=== PATIENT | male | born 1955 | race Caucasian/White ===

== ENCOUNTER → 2017-12-18 11:10 | Outpatient (CLI) | payer BC, SELFPAY ==
[2017-12-18 12:19] LABS: PSA,Total- Diagnostic 0.02 ng/mL (0.0-4.0)
== END ==
PROVIDERS: Family Provider Family Medicine; PCP Family Medicine; Visit Provider Urology
DX: C61 Malignant neoplasm of prostate (principal)
CPT/HCPCS: 36415; 84153

== ENCOUNTER → 2018-03-26 10:48 | Outpatient (CLI) | payer MEDICARE, BC, SELFPAY ==
--- NOTE | 2018-03-26 10:48 | DT_ITS ---
This patient was seen during an EMR downtime March 25, 2018 - April 01, 2018. This patient may have a combination of paper and electronic documentation or all paper documentation. All documentation is viewable within the e-chart portion of [employer] for each patient visit.
[2018-04-01 19:00] LABS: PSA,Total- Diagnostic < 0.01 ng/mL (0.0-4.0)
== END ==
PROVIDERS: Family Provider Family Medicine; PCP Family Medicine; Visit Provider Urology
DX: C61 Malignant neoplasm of prostate (principal)
CPT/HCPCS: 36415; 84153

== ENCOUNTER → 2018-07-08 09:23 | Outpatient (CLI) | payer MEDICARE, BC, SELFPAY ==
[2018-07-08 10:39] LABS: PSA,Total- Diagnostic 0.08 ng/mL (0.0-4.0)
== END ==
PROVIDERS: Family Provider Family Medicine; PCP Family Medicine; Visit Provider Urology
DX: C61 Malignant neoplasm of prostate (principal)
CPT/HCPCS: 36415; 84153

== ENCOUNTER → 2018-10-07 13:14 | Outpatient (CLI) | payer MEDICARE, BC, SELFPAY ==
[2018-10-07 14:59] LABS: PSA,Total- Diagnostic 0.33 ng/mL (0.0-4.0)
--- OUTSIDE RECORDS SUMMARY | 2019-01-09 04:08 | XMS RPT_ITS ---
:1955 Author Organization OHIP Care Team Providers Name Role Phone Washington Gray Attending Unavailable Marina, Washington Jacobsen Referring Unavailable Simental, Saul Primary Care Unavailable Marina, Washington Jacobsen Attending Unavailable Marina, Washington Jacobsen Referring Unavailable Simental, Saul Primary Care Unavailable Marina, Washington Jacobsen Attending Unavailable Marina, Washington Jacobsen Referring Unavailable Simental, Saul Primary Care Unavailable Marina, Washington Jacobsen Attending Unavailable Marina, Washington Jacobsen Referring Unavailable Simental, Saul Primary Care Unavailable PROBLEMS PROBLEMS DATE TYPE CONDITION / CODE ATTENDING STATUS SOURCE 10/07/2018 Unknown R97.20 - Washington Gray Active [place] [facility] specific antigen Repository [PSA] / R97.20(ICD-10) 05/17/2018 Unknown C61 - Malignant Marina, Washington Active [place] neoplasm of [facility] prostate / Hospital C61(ICD-10) Repository PROCEDURES PROCEDURES No Procedure Records FoundRESULTS RESULTS PSA,TOTAL- DIAGNOSTIC Collected: 10/07/2018 Status: F Source: [place] 1:35 PM [facility] REPOSITORY TYPE CODE TESTS RESULT OUT OF RANGE REFERENCE UNITS LAB L501.9940 0.0-4.0 ng/mL PSA, Normal DIAGNOSTIC 0.33 Result Comment: This test was performed using the TPSA assay method for the [employer] system. Values obtained with different assay methods cannot be used interchangably. When changing PSA assays in the course of monitoring a patient, additional sequential testing should be carried out to confirm baseline values. Performed By: #### L501.9940 #### [facility] [address] [place], [address] PSA,TOTAL- DIAGNOSTIC Collected: 07/08/2018 Status: F Source: [place] 9:43 AM [facility] REPOSITORY TYPE CODE TESTS RESULT OUT OF RANGE REFERENCE UNITS LAB L501.9940 0.0-4.0 ng/mL PSA, Normal DIAGNOSTIC 0.08 Result Comment: This test was performed using the TPSA assay method for the [employer] chemistry system. Values obtained with different assay methods cannot be used interchangably. When changing PSA assays in the course of monitoring a patient, additional sequential testing should be carried out to confirm baseline values. Performed By: #### L501.9940 #### [facility] [address] [place], [address] DOWNTIME REPORT Observed: 04/11/2018 Status: F Source: [place] 12:25 PM [facility] REPOSITORY [facility] Medical Records Department [address] [place] [address] Downtime Report MR#: [id number] Acct: [id number] Name: LEXX BELTRAN Rep #: [id number] : 1955 63 From: Jean Simental PCP: Saul Simental MD Status: REG CLI This patient was seen during an EMR downtime March 25, 2018 - April 01, 2018. This patient may have a combination of paper and electronic documentation or all paper documentation. All documentation is viewable within the e-chart portion of [employer] for each patient visit. PSA,TOTAL- DIAGNOSTIC Collected: 03/26/2018 Status: F Source: [place] 12:00 AM [facility] REPOSITORY Order Comment: RESULT(S) PREVIOUSLY REPORTED ON MANUAL REQUISITION DURING DOWNTIME. TYPE CODE TESTS RESULT OUT OF RANGE REFERENCE UNITS LAB L501.9940 0.0-4.0 ng/mL PSA, Normal DIAGNOSTIC < 0.01 Result Comment: This test was performed using the TPSA assay method for the [employer] chemistry system. Values obtained with different assay methods cannot be used interchangably. When changing PSA assays in the course of monitoring a patient, additional sequential testing should be carried out to confirm baseline values. Performed By: #### L501.9940 #### [facility] [address] [place], [address] PSA,TOTAL- DIAGNOSTIC Collected: 12/18/2017 Status: F Source: [place] 11:13 AM [facility] REPOSITORY TYPE CODE TESTS RESULT OUT OF RANGE REFERENCE UNITS LAB L501.9940 0.0-4.0 ng/mL PSA, Normal DIAGNOSTIC 0.02 Result Comment: This test was performed using the TPSA assay method for the [employer] chemistry system. Values obtained with different assay methods cannot be used interchangably. When changing PSA assays in the course of monitoring a patient, additional sequential testing should be carried out to confirm baseline values. Performed By: #### L501.9940 #### [facility] [address] [place], [address] ALLERGIES ALLERGIES DATE TYPE / NAME / CODE REACTION SEVERITY SOURCE CODE 09/01/2014 Drug oxytetracycline Unknown Unknown [place] Allergy/41 HCl/[id number](RXNORM [facility] [id number] Repository 09/01/2014 Drug oxytetracycline/F0060 Unknown Unknown [place] Allergy/41 07056(RXNORM) [facility] [id number]([facility]) Repository 09/01/2014 Drug venom-honey Hives Unknown [place] Allergy/41 bee/[id number](RXNORM [facility] [id number]) Repository ENCOUNTERS ENCOUNTERS ADMIT/DISCHARGE ACCOUNT ADMITTING ENCOUNTER LOCATION SOURCE NUMBER CLASS 10/07/2018 [id number] Ambulatory [place] 1 [facility] ing:LAB Repository 07/08/2018 [id number] Ambulatory [place] 4 [facility] ing:LAB Repository 03/26/2018 [id number] Ambulatory [place] 6 [facility] ing:LAB Repository 12/18/2017 [id number] Ambulatory [place] 0 [facility] ing:LAB Repository PAYERS PAYERS ENCOUNTER GUARANTOR PAYER SUBSCRIBER SOURCE 10/07/2018 LEXX N Primary LEXX N [place] [id number] TR Insurance:MEDICARE JENSENDOB: [address], PART A [id number] [address]Rhw: Number: Repository [id number] () Date:2018-10-07 10/07/2018 Secondary LEXX N [place] Insurance:ANTHEMPolic JENSENDOB: Community y Number: [id number] Hospital [id number] Repository Date:7702-26-90ID [address] [place] [address] 364[address]FW: 10/07/2018 Tertiary NOT GIVENUNK [place] Insurance:SELF PAY [facility] Number: Effective Repository Date:2018-10-07 07/08/2018 LEXX N Primary LEXX N [place] [id number] TR Insurance:MEDICARE JENSENDOB: [address], PART A [facility] [id number] [address]Fhq: Number: Repository [id number] (HP) Date:2018-07-08 07/08/2018 Secondary LEXX N [place] Insurance:ANTHEMPolic JENSENDOB: Community y Number: [id number] Hospital [id number] Repository Date:9885-17-24FP [address] [place] [address]RJ: 07/08/2018 Tertiary NOT GIVENUNK [place] Insurance:SELF PAY [facility] Number: Effective Repository Date:2018-07-08 03/26/2018 Lexx N Primary Lexx N [place] [id number] Tr Insurance:MEDICARE JensenDOB: [address], PART A [facility] [id number] [address]Jml: Number: Repository [id number] (HP) Date:2018-03-26 03/26/2018 Secondary Lexx N [place] Insurance:ANTHEMPolic JensenDOB: Community y Number: [id number] Hospital [id number] Repository Date:2821-18-60DG [address] [place] [address] [place] [address]TT: 03/26/2018 Tertiary NOT GIVENUNK [place] Insurance:SELF PAY [facility] Number: Effective Repository Date:2018-03-26 12/18/2017 Lexx Francois Primary [place]x [place] [id number] Tr Insurance:ANTHEMPolic JensenDOB: [address] Number: [id number] [address]Iga: [id number] Repository Date:[id number] [address] () [place], [place] [address]EQ: 12/18/2017 Secondary NOT GIVENUNK [place] Insurance:SELF PAY [facility] Number: Effective Repository Date:2017-12-18
== END ==
PROVIDERS: Family Provider Family Medicine; PCP Family Medicine; Referring Provider Urology; Visit Provider Urology
DX: R97.20 Elevated prostate specific antigen [PSA] (principal)
CPT/HCPCS: 36415; 84153

== ENCOUNTER → 2019-01-06 10:52 | Outpatient (CLI) | payer MEDICARE, BC, SELFPAY ==
[2019-01-06 12:12] LABS: PSA,Total- Diagnostic 0.04 ng/mL (0.0-4.0)
== END ==
PROVIDERS: Family Provider Family Medicine; PCP Family Medicine; Referring Provider Urology; Visit Provider Urology
DX: C61 Malignant neoplasm of prostate (principal)
CPT/HCPCS: 36415; 84153

== ENCOUNTER → 2019-07-07 12:28 | Outpatient (CLI) | payer MEDICARE, BC, SELFPAY ==
[2019-07-07 13:34] LABS: PSA,Total- Diagnostic 0.14 ng/mL (0.0-4.0)
== END ==
PROVIDERS: Family Provider Family Medicine; PCP Family Medicine; Referring Provider Urology; Visit Provider Urology
DX: C61 Malignant neoplasm of prostate (principal)
CPT/HCPCS: 36415; 84153

== ENCOUNTER → 2020-01-06 10:49 | Outpatient (CLI) | payer MEDICARE, BC, SELFPAY ==
[2020-01-06 11:52] LABS: PSA,Total- Diagnostic 0.96 ng/mL (0.0-4.0)
== END ==
PROVIDERS: PCP Family Medicine; Referring Provider Urology; Visit Provider Urology
DX: C61 Malignant neoplasm of prostate (principal)
CPT/HCPCS: 36415; 84153

== ENCOUNTER → 2020-03-19 10:19 | Outpatient (CLI) | payer MEDICARE, BC, SELFPAY ==
[2020-03-19 11:14] LABS: PSA,Total - Annual Screen 1.87 ng/mL (0.00-4.00)
== END ==
PROVIDERS: PCP Family Medicine; Referring Provider Urology; Visit Provider Urology
DX: C61 Malignant neoplasm of prostate (principal); Z12.5 Encounter for screening for malignant neoplasm of prostate
CPT/HCPCS: 36415; 84153; G0103

== ENCOUNTER → 2020-06-18 11:59 | Outpatient (CLI) | payer MEDICARE, BC, SELFPAY ==
[2020-06-18 13:16] LABS: PSA,Total- Diagnostic 2.77 ng/mL (0.0-4.0)
== END ==
PROVIDERS: PCP Family Medicine; Referring Provider Urology; Visit Provider Urology
DX: C61 Malignant neoplasm of prostate (principal)
CPT/HCPCS: 36415; 84153

== ENCOUNTER → 2020-09-22 10:39 | Outpatient (CLI) | payer MEDICARE, BC, SELFPAY ==
[2020-09-22 11:33] LABS: PSA,Total- Diagnostic 0.37 ng/mL (0.0-4.0)
== END ==
PROVIDERS: PCP Family Medicine; Visit Provider Urology
DX: C61 Malignant neoplasm of prostate (principal)
CPT/HCPCS: 36415; 84153

== ENCOUNTER → 2020-12-30 10:57 | Outpatient (CLI) | payer MEDICARE, BC, SELFPAY ==
[2020-12-30 12:46] LABS: PSA,Total- Diagnostic 0.41 ng/mL (0.0-4.0)
== END ==
PROVIDERS: PCP Family Medicine; Referring Provider Urology; Visit Provider Urology
DX: C61 Malignant neoplasm of prostate (principal)
CPT/HCPCS: 36415; 84153; 84403

== ENCOUNTER → 2021-04-07 11:05 | Outpatient (CLI) | payer MEDICARE, BC, SELFPAY ==
[2021-04-07 12:11] LABS: Anion Gap 6 (5-15); BUN 11 mg/dL (7-18); BUN/Creat Ratio 11.6 RATIO (10-20); Calcium,Total 9.3 mg/dL (8.5-10.1); Chloride 102 mmol/L (98-107); Creatinine, Serum 0.94 mg/dL (0.70-1.30); EST Glomerular Filtration Rate 84 mL/min (>60); Est Glom Filt Rate - Afr Amer 102 mL/min (>60); Glucose 99 mg/dL (74-106); PSA,Total- Diagnostic 2.49 ng/mL (0.0-4.0); Potassium 4.4 mmol/L (3.5-5.1); Sodium Level 139 mmol/L (136-145)
== END ==
PROVIDERS: PCP Family Medicine; Visit Provider Urology
DX: C61 Malignant neoplasm of prostate (principal)
CPT/HCPCS: 36415; 80048; 84153; 84403

== ENCOUNTER → 2021-07-12 11:29 | Outpatient (CLI) | payer MEDICARE, BC, SELFPAY ==
[2021-07-12 13:13] LABS: PSA,Total- Diagnostic 4.84 ng/mL (0.0-4.0)
== END ==
PROVIDERS: PCP Family Medicine; Referring Provider Urology; Visit Provider Urology
DX: C61 Malignant neoplasm of prostate (principal)
CPT/HCPCS: 36415; 84153; 84403

== ENCOUNTER 2021-10-24 11:10 | Outpatient (CLI) | payer MEDICARE, BC, SELFPAY ==
[2021-10-24 12:00] LABS: PSA,Total- Diagnostic 2.95 ng/mL (0.0-4.0)
== END 2021-10-24 23:59 | disposition short-term general hospital (02) ==
LOC: LAB 11:13
PROVIDERS: PCP Family Medicine; Visit Provider Urology
DX: C61 Malignant neoplasm of prostate (principal)
CPT/HCPCS: 36415; 84153

== ENCOUNTER 2022-01-20 11:37 | Outpatient (CLI) | payer MEDICARE, BC, SELFPAY ==
[2022-01-20 13:13] LABS: PSA,Total- Diagnostic 0.98 ng/mL (0.0-4.0)
== END 2022-01-20 23:59 | disposition home or self-care (01) ==
LOC: LAB 11:39
PROVIDERS: PCP Family Medicine; Referring Provider Registered Nurse; Visit Provider Registered Nurse
DX: C61 Malignant neoplasm of prostate (principal)
CPT/HCPCS: 36415; 84153

== ENCOUNTER → 2022-05-23 | Outpatient (CLI) | payer MEDICARE, BC, SELFPAY | END | disposition home or self-care (01) | PROVIDERS: Referring Provider Urology; Visit Provider Urology | DX: C61 Malignant neoplasm of prostate (principal) | CPT/HCPCS: 36415; 84153 ==

== ENCOUNTER → 2022-09-26 | Outpatient (CLI) | payer MEDICARE, BC, SELFPAY | END | disposition home or self-care (01) | LOC: LAB 10:18 | PROVIDERS: PCP Family Medicine; Visit Provider Registered Nurse | DX: C61 Malignant neoplasm of prostate (principal) | CPT/HCPCS: 36415; 84153 ==

== ENCOUNTER → 2023-01-01 | Outpatient (CLI) | payer MEDICARE, BC, SELFPAY ==
[2023-01-01 10:50] LABS: PSA,Total- Diagnostic 4.08 ng/mL (0.0-4.0)
== END | disposition home or self-care (01) ==
LOC: LAB 09:00
PROVIDERS: PCP Family Medicine; Referring Provider Registered Nurse; Visit Provider Registered Nurse
DX: C61 Malignant neoplasm of prostate (principal)
CPT/HCPCS: 36415; 84153

== ENCOUNTER → 2023-04-04 | Outpatient (CLI) | payer MEDICARE, BC, SELFPAY ==
[2023-04-04 12:17] LABS: PSA,Total- Diagnostic 2.71 ng/mL (0.0-4.0)
== END | disposition home or self-care (01) ==
LOC: LABSPEC 11:14
PROVIDERS: PCP Family Medicine; Referring Provider Registered Nurse; Visit Provider Registered Nurse
DX: C61 Malignant neoplasm of prostate (principal)
CPT/HCPCS: 36415; 84153

== ENCOUNTER → 2023-05-01 | Outpatient (CLI) | payer MEDICARE, BC, SELFPAY ==
--- NOTE | 2023-05-01 10:30 | PET_ITS ---
EXAMINATION: 18 F Pylarify PET-CT HISTORY: A 68-year-old male with history of primary prostate carcinoma presenting for restaging examination. COMPARISON EXAMINATION: None available INDEX LESION SIZE PROMISE SCORE SUV INTERPRETATION Abdominal retroperitoneum and pelvis soft tissue adenopathy 9.3-mm (largest) 3 27.35 (max) Fulfills quantitative criteria for malignant transformation TECHNIQUE: Following the intravenous administration of 9.99 mCi of 18 F Pylarify via the left hand, image acquisitions of the head, neck, chest, abdomen and pelvis to the level of the mid thigh at 73 minutes post-tracer distribution reveal: The examination was interpreted using the EANM (Rita et al., Journal of Nuclear Medicine Molecular Imaging 44:1622, 2017) and PROMISE (Hina et al., Journal of Nuclear Medicine 59:469, 2018) interpretive criteria. HEIGHT: 72 inches. WEIGHT: 180 lbs. PSMA expression score PROMISE criteria: High (3): SUV ? parotid-salivary gland, intermediate (2): SUV ? liver, low (1): > blood pool, < liver, (0): < blood pool. SUV reference values: Parotid glands 18.64. Normal liver parenchyma 4.1. Blood pool 2.1 FINDINGS: Head/Neck: Symmetric radiopharmaceutical concentration is defined in the bilateral parotid and submandibular glands. There is physiologic uptake within the nasal cavity. There is no evidence of abnormal increased tracer concentration within the cranial vault. CHEST: There is no evidence of abnormal increased radiotracer within the context of the bilateral hemithorax pulmonary parenchyma, mediastinal structures and right-left thoracic perihilum. Pertinent chest CT findings are as follows. There is atherosclerotic calcification defined in the thoracic aorta without evidence of dilatation-aneurysm formation. Coronary arterial calcification is observed. Bilateral axillary soft tissue densities are non-tracer avid. Mediastinal soft tissue reveals no evidence of increased radiopharmaceutical. Emphysematous changes are defined in the bilateral upper lung zones. There are no parenchymal densities-nodules defined in the right and left hemithorax pulmonary parenchyma displaying increased tracer uptake. Abdomen/Pelvis: Facilitated radiopharmaceutical concentration is multifocally apparent in the abdominal retroperitoneum and pelvis corresponding to soft tissue adenopathy. The calculated maximal standard uptake value is 27.35. The PROMISE score is 3. The largest corresponding soft tissue density is 9.3-mm. Physiologic radiopharmaceutical concentration is otherwise noted in the hepatic and splenic parenchyma, visualized intestinal tract, right and left kidneys, urinary bladder. Review of CT of the abdomen and pelvis reveals the following. Abdominal aorta. Abdominal-pelvic arterial calcification is observed. Fat containing right inguinal hernia is noted. Right and left inguinal soft tissue densities are ametabolic. SKELETAL: Degenerative changes are noted in the cervical, thoracic and lumbar spine without evidence of increased radiopharmaceutical concentration. PET/PET/CT Tumor WB Subs IMPRESSION: 1. ABNORMAL EXAMINATION INDICATIVE OF MALIGNANT VIABLE NEOPLASM. 2. Increased radiopharmaceutical concentration manifest in the abdominal retroperitoneum and pelvis fulfills quantitative criteria for viable neoplasm. (Eiber et al., Journal of Nuclear Medicine 59:469, 2018). Electronic Signature Arnulfo Roman, DO Accurate Quantification of SUVs and standardized PROMISE scores for this report are calculated using the exclusive [employer], (U.S. Patent No. [phone] [place] patent [phone] ). Standardization and correction of the FDG SUV metric exclusively available with [employer] intellectual property, allow for vendor non-specific objective quantitative sequential FDG PET-CT comparison and otherwise unobtainable optimization of the sensitivity and specificity of the examination. Electronically Signed: Arnulfo Roman, at 21:35 EDT ,
== END | disposition home or self-care (01) ==
LOC: ONC 09:59
PROVIDERS: PCP Family Medicine; Referring Provider Urology; Visit Provider Urology
DX: C61 Malignant neoplasm of prostate (principal)
CPT/HCPCS: 78816; A9595

== ENCOUNTER → 2023-07-06 | Outpatient (CLI) | payer MEDICARE, BC, SELFPAY ==
[2023-07-06 10:55] LABS: Creatinine, Serum 0.72 mg/dL (0.70-1.30); EST Glomerular Filtration Rate 114 mL/min (>60); Est Glom Filt Rate - Afr Amer 138 mL/min (>60); PSA,Total- Diagnostic 1.02 ng/mL (0.0-4.0)
== END | disposition home or self-care (01) ==
LOC: LAB 09:47
PROVIDERS: Student in an Organized Health Care Education/Training Program; PCP Family Medicine; Referring Provider Urology; Visit Provider Urology
DX: C61 Malignant neoplasm of prostate (principal)
CPT/HCPCS: 36415; 82565; 84153

== ENCOUNTER → 2023-10-10 | Outpatient (CLI) | payer MEDICARE, BC, SELFPAY | END | disposition home or self-care (01) | PROVIDERS: PCP Family Medicine; Referring Provider Urology; Visit Provider Urology | DX: C61 Malignant neoplasm of prostate (principal) | CPT/HCPCS: 36415; 84153 ==

== ENCOUNTER → 2024-01-10 | Outpatient (CLI) | payer MEDICARE, BC, SELFPAY ==
[2024-01-10 11:46] LABS: PSA,Total- Diagnostic 0.26 ng/mL (0.0-4.0)
== END | disposition home or self-care (01) ==
LOC: LAB 10:18
PROVIDERS: PCP Family Medicine; Referring Provider Urology; Visit Provider Urology
DX: R97.21 Rising PSA following treatment for malignant neoplasm of prostate (principal)
CPT/HCPCS: 36415; 84153

== ENCOUNTER → 2024-02-28 | Outpatient (CLI) | payer MEDICARE, BC, SELFPAY ==
--- NOTE | 2024-02-28 15:05 | RAD_ITS ---
STUDY: X-RAY - LUMBAR SPINE REASON FOR EXAM: Male, 68 years old. Back pain. TECHNIQUE: 2 view(s) of the lumbar spine were obtained. COMPARISON: None FINDINGS: Osteopenia. Normal lumbar lordosis. Mild dextroscoliosis. 1 cm of anterolisthesis of L5 on S1. Endplate concavities compatible with osteoporosis. Anterior wedge compression deformity of L1, age indeterminant. Diffuse intervertebral disc space narrowing with osteophyte formation most marked at L2-3 and to the greatest degree at L3-4. Marked vascular calcification. RAD/Lumbar Spine 2 or 3 Views IMPRESSION: Osteopenia with [id number] lumbosacral spondylosis as described. Electronically Signed: Sagar Whipple MD at 15:26 EDT ,
== END | disposition home or self-care (01) ==
LOC: MTRAD 15:04
PROVIDERS: PCP Family Medicine; Referring Provider Family Medicine; Visit Provider Family Medicine
DX: M47.819 Spondylosis without myelopathy or radiculopathy, site unspecified (principal)
CPT/HCPCS: 72100

== ENCOUNTER → 2024-03-06 | Outpatient (CLI) | payer MEDICARE, BC, SELFPAY ==
--- NOTE | 2024-03-06 07:56 | MRI_ITS ---
HISTORY: Compression fracture TECHNIQUE: Multiplanar and multisequence MR images of the lumbar spine were obtained without intravenous contrast. 161 images. COMPARISON: 02/28/2024. FINDINGS: VERTEBRAE: Compression fracture at the superior endplate of L1 with bone marrow edema, less than 30% loss of height, and no significant retropulsion into the spinal canal. Other vertebral body heights maintained. ALIGNMENT: 2 mm anterolisthesis of L5-S1. SPINAL CANAL: Normal morphology and position of the conus medullaris at L1. No gross epidural collection or ligamentous disruption. INTERVERTEBRAL DISCS: T12-L1, L1-2, L2-3, L3-4: No significant posterior disc protrusion, central canal stenosis, or foraminal narrowing. L4-5: Minimal disc bulge with mild facet arthropathy resulting in minimal narrowing of the thecal sac and bilateral foramina L5-S1: Minimal disc bulge with facet arthropathy resulting in minimal bilateral foraminal narrowing. No significant central canal stenosis. SOFT TISSUES: Mild posterior subcutaneous edema. Enlarged liver. MRI/Spine Lumbar (Routine) IMPRESSION: Acute-subacute mild L1 compression fracture. Mild degenerative changes of the lumbar spine without significant spinal canal or foraminal stenosis. Electronically Signed: Ramandeep Lora MD at 10:03 EDT ,
== END | disposition home or self-care (01) ==
LOC: MRI 07:42
PROVIDERS: PCP Family Medicine; Referring Provider Family Medicine; Visit Provider Family Medicine
DX: S32.000A Wedge compression fracture of unspecified lumbar vertebra, initial encounter for closed fracture (principal); X58.XXXA Exposure to other specified factors, initial encounter
CPT/HCPCS: 72148

== ENCOUNTER → 2024-03-14 | Outpatient (CLI) | payer MEDICARE, BC, SELFPAY ==
--- NOTE | 2024-03-13 09:00 | BONBX_PTH ---
PATIENT: HYACINTH BELTRAN LOC: [facility] U#:[id number] AGE/SX: 69/M ROOM: RE03/14/[address]: Dr. Jameson Ghotra MD : 1955 BED: DIS: 03/14/2024 SPEC #: [id number] RECD: 03/18/24 09:42 STATUS: JOSÉ RESkyla #: [id number] SCAR: 03/13/24 09:[address]: Jameson Ghotra DEPT: SURGICAL PATHOLOGY RECD BY: Malina Kimbrough ENTERED: 03/18/24 09:43 SP TYPE: Bone OTHR DR: Los Joy MD Tissues: Vertebra, NOS Procedures: Decalcification bone/plaque Surgery Specimen Level V HEADER OPERATION: Kyphoplasty at L1 PRE-OP DIAGNOSIS: Age-related osteoporosis with current pathological fracture, vertebra, initial encounter for fracture TISSUE SUBMITTED: Body of L1 biopsy MICROSCOPIC DIAGNOSIS L1 vertebral body, bone core biopsy: Reparative and reactive change consistent with fracture site. No evidence of malignancy. / 03/19/2024 MICROSCOPIC DESCRIPTION Slides are reviewed. GROSS DESCRIPTION Received in fixative is one container labeled with the patient's name and designated Body of L1. The specimen consists of the cylindrical fragment of bone measuring 0.9cm in length and 0.2cm in diameter. The specimen is submitted in its entirety in one cassette after decalcification. / 03/18/2024 TC:5 CPT:[id number]
== END | disposition home or self-care (01) ==
LOC: LABSPEC 15:12
PROVIDERS: PCP Family Medicine; Referring Provider Anesthesiology Pain Medicine; Visit Provider Anesthesiology Pain Medicine
DX: M81.0 Age-related osteoporosis without current pathological fracture (principal)
CPT/HCPCS: 88307; 88311

== ENCOUNTER → 2024-04-23 | Outpatient (CLI) | payer MEDICARE, BC, SELFPAY | END | disposition home or self-care (01) | LOC: LAB 08:58 | PROVIDERS: PCP Family Medicine; Referring Provider Urology; Visit Provider Urology | DX: C61 Malignant neoplasm of prostate (principal) | CPT/HCPCS: 36415; 84153 ==

== ENCOUNTER → 2024-06-09 | Outpatient (CLI) | payer MEDICARE, BC, SELFPAY ==
--- NOTE | 2024-06-09 09:45 | RAD_ITS ---
STUDY: X-RAY - LUMBAR SPINE REASON FOR EXAM: Male, 69 years old. HX COMPRESSION FRACTURE AT L1 TECHNIQUE: 5 view(s) of the lumbar spine were obtained. COMPARISON: 02/28/2024 FINDINGS: Normal lumbar lordosis. There is no substantial scoliosis. There is a normal alignment of the vertebrae. Interval treatment of compression fracture of L1 with vertebroplasty. Bilateral pars defects. L5 vertebra consistent with L5 spondylolysis. No anterolisthesis of L5 on S1 to 6 spinal listhesis. Normal disc space heights. There is multilevel facet hypertrophy. The soft tissue structures are unremarkable. RAD/L/S Spine Min 4 Views IMPRESSION: Interval vertebroplasty of compression fracture of L1. L5 spondylolysis without spondylolisthesis of L5 on S1. Degenerative disc disease. MRI may be useful. Electronically Signed: Arnulfo Patterson MD at 8:46 EDT ,
--- NOTE | 2024-06-09 09:45 | RAD_ITS ---
STUDY: X-RAY - THORACIC SPINE REASON FOR EXAM: Male, 69 years old. HX COMPRESSION FRACTURE AT L1 TECHNIQUE: 3 view(s) of the thoracic spine were obtained. COMPARISON: None. FINDINGS: Normal kyphosis of the thoracic spine. There is no substantial scoliosis. Chronic moderate wedge compression fracture of L1 treated with vertebral plasty. Flowing syndesmophytes throughout the thoracic spine consistent with ankylosing spondylitis. Normal disc space heights. The soft tissue structures are unremarkable. RAD/Thoracic Spine 3 Views IMPRESSION: Chronic moderate wedge compression fracture of L1 treated with vertebroplasty. Suspect ankylosing spondylitis. Electronically Signed: Arnulfo Patterson MD at 8:44 EDT ,
== END | disposition home or self-care (01) ==
LOC: RAD 09:35
PROVIDERS: PCP Family Medicine; Referring Provider Clinical Nurse Specialist Adult Health; Visit Provider Clinical Nurse Specialist Adult Health
DX: M54.6 Pain in thoracic spine (principal); M48.01 Spinal stenosis, occipito-atlanto-axial region
CPT/HCPCS: 72072; 72110

== ENCOUNTER → 2024-06-10 | Outpatient (CLI) | payer MEDICARE, BC, SELFPAY ==
--- NOTE | 2024-06-10 17:30 | MRI_ITS ---
STUDY: MRI LUMBAR SPINE WITHOUT CONTRAST REASON FOR EXAM: Male, 69 years old. L3 FRACTURE, HX OF PREVIOUS L1FX, BACK PAIN, PLEASE COMPARE TO PREVIOUS LUMBAR XRAYS AND MRI TECHNIQUE: Standardized fat and water weighted pulse sequences were obtained in the sagittal and axial planes. COMPARISON: Lumbar radiograph May 26 12/11/2023. MR lumbar spine March 06, 2024. FINDINGS: Compression fracture L1 not demonstrates signal loss centrally consistent with methylmethacrylate. No retropulsion or significant bone marrow edema. T12-L1: Normal endplates. Normal disc height, hydration and morphology. Normal bilateral facet joints. Normal central canal and bilateral lateral recesses. Normal bilateral intervertebral neural foramina. Normal lumbar lordosis. There is no substantial scoliosis. Normal conus medullaris that terminates at the L1-2. L1-2: Normal endplates. Normal disc height, hydration and morphology. Normal bilateral facet joints. Normal central canal and bilateral lateral recesses. Normal bilateral intervertebral neural foramina. L2-3: Normal endplates. Normal disc height, hydration and morphology. Normal bilateral facet joints. Normal central canal and bilateral lateral recesses. Normal bilateral intervertebral neural foramina. L3-4: Normal endplates. Normal disc height, hydration and morphology. Normal bilateral facet joints. Normal central canal and bilateral lateral recesses. Normal bilateral intervertebral neural foramina. L4-5: Normal endplates. Normal disc height, hydration and morphology. Hypertrophic bilateral facet joints. Normal central canal and bilateral lateral recesses. Moderate narrowing bilateral intervertebral neural foramina. L5-S1: Normal endplates. Normal disc height, hydration and morphology. Normal bilateral facet joints. Normal central canal and bilateral lateral recesses. Normal bilateral intervertebral neural foramina. Normal visualized sacral ala. Normal visualized paraspinous soft tissue structures. MRI/Spine Lumbar (Routine) IMPRESSION: Interval vertebral plasty L1 compression fracture otherwise no acute disease Electronically Signed: Gonzales Bush MD at 20:07 EDT ,
== END | disposition home or self-care (01) ==
LOC: MRI 16:34
PROVIDERS: PCP Family Medicine; Referring Provider Anesthesiology Pain Medicine; Visit Provider Anesthesiology Pain Medicine
DX: M80.08XA Age-related osteoporosis with current pathological fracture, vertebra(e), initial encounter for fracture (principal)
CPT/HCPCS: 72148

== ENCOUNTER → 2024-06-24 | Outpatient (CLI) | payer MEDICARE, BC, SELFPAY ==
--- NOTE | 2024-06-24 | BON_PTH ---
PATIENT: HYACINTH BELTRAN LOC: [facility] U#:[id number] AGE/SX: 69/M ROOM: RE06/24/[address]: Dr. Jameson Ghotra MD : 1955 BED: DIS: 06/24/2024 SPEC #: [id number] RECD: 06/24/24 15:03 STATUS: JOSÉ PAINTING #: [id number] SCAR: 06/24/24 00:[address]: Jameson Ghotra DEPT: SURGICAL PATHOLOGY RECD BY: David Charlton ENTERED: 06/25/24 08:32 SP TYPE: Bone OTHR DR: Los Joy MD [facility] Tissues: Vertebra, NOS Procedures: Decalcification bone/plaque Surgery Specimen Level IV HEADER OPERATION: Kyphoplasty at L5 with biopsy under fluoroscopy PRE-OP DIAGNOSIS: Age-related osteoporosis with current pathologic fracture, vertebra, initial encounter for fracture TISSUE SUBMITTED: Lumbar biopsy- body of L5 MICROSCOPIC DIAGNOSIS L5 vertebral body, bone biopsy: Organizing fracture callus. No evidence of malignancy. ASHISH/ 06/26/2024 MICROSCOPIC DESCRIPTION Slides are reviewed. GROSS DESCRIPTION Received is one container labeled with the patient's name and not further designated. The specimen consists of a fragment of bone measuring 1.5cm in length and 0.3cm in diameter. The entire specimen is submitted in one cassette after decalcification. 06/25/2024 TC:5 CPT:[id number]
== END | disposition home or self-care (01) ==
LOC: LABSPEC 16:07
PROVIDERS: PCP Family Medicine; Referring Provider Anesthesiology Pain Medicine; Visit Provider Anesthesiology Pain Medicine
DX: M80.08XA Age-related osteoporosis with current pathological fracture, vertebra(e), initial encounter for fracture (principal)
CPT/HCPCS: 88305; 88311

== ENCOUNTER → 2024-07-24 | Outpatient (CLI) | payer MEDICARE, BC, SELFPAY ==
[2024-07-24 14:31] LABS: PSA,Total- Diagnostic 0.04 ng/mL (0.0-4.0)
--- NOTE | 2024-07-24 15:45 | RAD_ITS ---
INDICATION: SUSPECT NEW COMPRESION FRACTURE EXAMINATION/TECHNIQUE: X-RAY - XR Spine Lumbar Min 4 Views COMPARISON: Prior study dated: Lumbar spine x-rays 06/09/2024 FINDINGS: L5 mild compression fracture with vertebroplasty is new compared to the prior study. L1 compression fracture with vertebroplasty is unchanged. The other vertebral bodies are normal in height. No definite fracture demonstrated. No subluxation. Disc space narrowing and osteophytes at most levels. Facet arthropathy mainly at L4-5 and L5-S1. No paravertebral soft tissue mass identified. RAD/L/S Spine Min 4 Views IMPRESSION: L5 compression fracture with vertebroplasty is new compared to the prior study. Stable L1 compression fracture postvertebroplasty. No evidence of acute fracture. Electronically Signed: Natasha West MD at 8:12 EDT ,
== END | disposition home or self-care (01) ==
PROVIDERS: Urology; PCP Family Medicine; Referring Provider Clinical Nurse Specialist Adult Health; Visit Provider Clinical Nurse Specialist Adult Health
DX: M47.816 Spondylosis without myelopathy or radiculopathy, lumbar region (principal); C61 Malignant neoplasm of prostate; M47.817 Spondylosis without myelopathy or radiculopathy, lumbosacral region
CPT/HCPCS: 36415; 72110; 84153

== ENCOUNTER → 2024-08-04 | Outpatient (CLI) | payer MEDICARE, BC, SELFPAY ==
--- NOTE | 2024-08-04 | IMM_PTH ---
PATIENT: HYACINTH BELTRAN LOC: [facility] U#:[id number] AGE/SX: 69/M ROOM: RE08/04/[address]: Dr. Jameson Ghotra MD : 1955 BED: DIS: 08/04/2024 SPEC #: [id number] RECD: 08/06/24 10:15 STATUS: JOSÉ REQ #: [id number] SCAR: 08/04/24 00:[address]: Jameson Ghotra DEPT: IMMUNOHISTOCHEMISTRY RECD BY: Maximilian Alegria ENTERED: 08/06/24 10:15 SP TYPE: IMMUNO OTHR DR: Los Joy MD Tissues: Vertebra, NOS Procedures: CD138 (add) CK8 (add) KAPPA (add) LAMBDA (add) Pankeratin (initial) PHYSICIAN & INSTITUTION [place] [id number] SPECIMEN INFORMATION: Tissue Source: Body of L2 Clinical Info: Age-related osteoporosis with current pathological fracture, vertebra, initial encounter for fracture Specimen Number: [id number] CPT code: 04841,43299d4 METHODOLOGY: Deparaffinized sections of prefer/formalin-fixed tissue or PAP/DQ stained slides are incubated with monoclonal/polyclonal antibodies/oligonucleotide probes. Localization is made via biotin free immunoperoxidase method. Appropriate controls are performed and reacted as expected. Results on target cell population are indicated in the following table: RESULTS: ANTIBODY / CLONE RESULT AE1-3 (AE1/AE3/PCK26) negative CK8 ([id number]) negative CD138 (B-A38) positive Rutherford (polyclonal) positive Lambda (polyclonal) positive These tests were developed and their performance characteristics determined by [facility]. They may not have been cleared or approved by the U.S. Food and Drug Administration. The FDA has determined that such clearance or approval is not necessary. The above immunohistochemical/dualISH markers are ordered and reviewed by the Pathologist. INTERPRETATION: Body of L2 vertebra, bone biopsy: Negative for malignancy. See comment. COMMENT: A few plasma cells are noted, polytypic in nature. 08/07/2024
--- NOTE | 2024-08-04 | BON_PTH ---
PATIENT: HYACINTH BELTRAN LOC: [facility] U#:[id number] AGE/SX: 69/M ROOM: RE08/04/[address]: Dr. Jameson Ghotra MD : 1955 BED: DIS: 08/04/2024 SPEC #: [id number] RECD: 08/05/24 11:07 STATUS: JOSÉ MERT #: [id number] SCAR: 08/04/24 00:[address]: Jameson Ghotra DEPT: SURGICAL PATHOLOGY RECD BY: Eleazar Olivo ENTERED: 08/05/24 11:07 SP TYPE: Bone OTHR DR: [place] MD [facility] Tissues: Vertebra, NOS Procedures: Decalcification bone/plaque Surgery Specimen Level IV HEADER OPERATION: Kyphoplasty at L2 under fluroscopy PRE-OP DIAGNOSIS: Age-related osteoporosis with current pathological fracture, vertebra, initial encounter for fracture TISSUE SUBMITTED: Body of L2 MICROSCOPIC DIAGNOSIS Body of L2, bone biopsy: Fragments of blood clot, skeletal muscle tissue and a minute fragment of bone, negative for malignancy, clinically fracture vertebra. Reactive changes. See comment. 08/06/2024 COMMENT Trilineage hematopoiesis is noted, and a few plasma cells are also noted, polytypic in nature. Immunohistochemistry ([id number]) supports the above diagnosis. Please make reference to previous specimen [id number] prostate, radical prostatectomy with diagnosis of prostatic adenocarcinoma, and [id number], L5 vertebral body, bone biopsy with diagnosis of organizing fracture callus, no evidence of malignancy and [id number], L1 vertebral body bone core biopsy with diagnosis of reparative and reactive changes consistent with fracture site, no evidence of malignancy. Case has been reviewed in consultation with Dr. Keller who concurs with the above diagnosis. IDC:AM MICROSCOPIC DESCRIPTION Slides are reviewed. GROSS DESCRIPTION Received is one container labeled with the patient's name and not further designated. The specimen consists of multiple fragments of blood clot mixed with fragments of bone measuring in aggregate 1.0 x 1.0 x 0.1cm. The entire specimen is submitted in one cassette after decalcification. SJVandanamr 08/05/2024 TC:5 CPT:40117,01307
== END | disposition home or self-care (01) ==
LOC: LABSPEC 15:32
PROVIDERS: PCP Family Medicine; Referring Provider Anesthesiology Pain Medicine; Visit Provider Anesthesiology Pain Medicine
DX: M80.08XA Age-related osteoporosis with current pathological fracture, vertebra(e), initial encounter for fracture (principal)
CPT/HCPCS: 88305; 88311; 88341; 88342

== ENCOUNTER → 2024-09-01 | Outpatient (CLI) | payer MEDICARE, BC, SELFPAY ==
--- NOTE | 2024-09-01 10:50 | RAD_ITS ---
INDICATION: SUSPECT NEW COMPRESSION FRACTURE EXAMINATION/TECHNIQUE: X-RAY - XR Spine Lumbar Min 4 Views COMPARISON: No relevant prior comparison study available FINDINGS: VERTEBRAE: Vertebroplasty at L1 and at L5 unchanged. Increased compression of L2 vertebra with new vertebroplasty at L2. Otherwise no evidence of acute fracture. Demineralization of the osseous structures. No spondylolisthesis. Preservation of the normal lumbar lordosis. No substantial scoliosis. DISCS: Disc spaces are within normal limits. Endplate spondylosis. INCLUDED ABDOMEN: Included bowel gas pattern is non-obstructive. RAD/L/S Spine Min 4 Views IMPRESSION: Increased compression of L2 vertebra since the previous examination with new vertebroplasty. Otherwise no significant change. Electronically Signed: Pravin Lee MD at 8:12 EST ,
== END | disposition home or self-care (01) ==
PROVIDERS: PCP Family Medicine; Referring Provider Clinical Nurse Specialist Adult Health; Visit Provider Clinical Nurse Specialist Adult Health
DX: S32.029A Unspecified fracture of second lumbar vertebra, initial encounter for closed fracture (principal)
CPT/HCPCS: 72110

== ENCOUNTER → 2024-10-29 | Outpatient (CLI) | payer MEDICARE, BC, SELFPAY ==
[2024-10-29 13:12] LABS: PSA,Total- Diagnostic 0.04 ng/mL (0.0-4.0)
== END | disposition home or self-care (01) ==
LOC: LAB 11:25
PROVIDERS: PCP Family Medicine; Referring Provider Urology; Visit Provider Urology
DX: C61 Malignant neoplasm of prostate (principal)
CPT/HCPCS: 36415; 84153

== ENCOUNTER → 2024-12-29 | Outpatient (CLI) | payer MEDICARE, BC, SELFPAY ==
[2024-12-29 16:06] LABS: Absolute Lymphocyte Count 1.05 X10^3/uL (0.83-4.51); Absolute Neutrophil Count 6.5 X10^3/uL (2.0-7.7); Basophil# 0.06 X10^3/uL; Basophil% 0.7 % (0-1); Eosinophil# 0.12 X10^3/uL; Eosinophils% 1.4 % (0-5); Hemoglobin 14.2 g/dL (13.0-16.5); Lymphocyte # 1.05 X10^3/ul (0.83-4.51); Lymphocyte % 12.7 % (19-41); Mean Corp Hgb Conc 32.3 g/dL (32-36); Mean Corpuscular Hgb 30.3 pg (27.0-32.0); Mean Corpuscular Volume 93.8 fL (80-94); Mean Platelet Vol. 8.8 fl (6.2-12.0); Monocyte# 0.54 X10^3/uL; Monocyte% 6.5 % (0-10); NRBC Flagged by Analyzer 0 % (0-5); Neutrophil # 6.48 X10^3/uL (2.7-7.7); Neutrophil % 78.3 % (47-70); Platelet Count 215 K/mm3 (150-450); RBC Distribution Width CV 13.2 % (11.6-14.6); RBC Distribution Width SD 45.6 fl (35.1-43.9); Red Blood Count 4.69 M/mm3 (4.6-6.2); White Blood Count 8.3 K/mm3 (4.4-11.0)
[2024-12-29 20:01] LABS: Cholesterol 220 mg/dL (<=200); High Density Lipoprotein 56 mg/dL; Low Density Lipoprotein Calc. 149 mg/dL; Triglycerides 79 mg/dL; Very Low Density Lipoprotein 16 mg/dL (5-40); Vitamin D,25 Hydroxy 21.6 ng/mL (30-100); cholesterol:hdl ratio screen 3.96
[2024-12-29 20:03] LABS: ALB/GLOB Ratio 1.5 RATIO (0.9-2.4); AST(SGOT) 17 U/L (<=37); Alanine Aminotransfer ALT/SGPT 16 U/L (<=46); Albumin, Serum 4.1 g/dL (3.4-4.8); Alkaline Phosphatase 87 U/L (40-129); Anion Gap 11 (5-15); BUN 13 mg/dL (4-19); BUN/Creat Ratio 19.8 RATIO (10-20); Calcium,Total 9.3 mg/dL (7.6-11.0); Carbon Dioxide 25.7 mmol/L (21.0-32.0); Chloride 99 mmol/L (98-108); Creatinine, Serum 0.67 mg/dL (0.70-1.20); EST Glomerular Filtration Rate 100 (>60); Globulin 2.8 g/dL (2.2-4.2); Glucose 92 mg/dL (70-99); Potassium 4.8 mmol/L (3.3-5.1); Sodium Level 136 mmol/L (133-145); Total Bilirubin 0.49 mg/dL (0.00-1.30)
== END | disposition home or self-care (01) ==
LOC: MFPLAB 12:25
PROVIDERS: PCP Family Medicine; Visit Provider Family Medicine
DX: Z13.220 Encounter for screening for lipoid disorders (principal); S32.000A Wedge compression fracture of unspecified lumbar vertebra, initial encounter for closed fracture; Z13.1 Encounter for screening for diabetes mellitus; X58.XXXA Exposure to other specified factors, initial encounter
CPT/HCPCS: 36415; 80053; 80061; 82306; 85025

== ENCOUNTER → 2025-01-27 | Outpatient (CLI) | payer MEDICARE, BC, SELFPAY ==
[2025-01-27 14:07] LABS: PSA,Total- Diagnostic 0.05 ng/mL (0.00-4.00)
== END | disposition home or self-care (01) ==
LOC: LAB 11:02
PROVIDERS: PCP Family Medicine; Referring Provider Urology; Visit Provider Urology
DX: C61 Malignant neoplasm of prostate (principal)
CPT/HCPCS: 36415; 84153

== ENCOUNTER → 2025-05-01 | Outpatient (CLI) | payer MEDICARE, BC, SELFPAY ==
[2025-05-01 13:51] LABS: PSA,Total- Diagnostic 0.09 ng/mL (0.00-4.00)
== END | disposition home or self-care (01) ==
LOC: LAB 11:30
PROVIDERS: PCP Family Medicine; Referring Provider Nurse Practitioner; Visit Provider Nurse Practitioner
DX: C61 Malignant neoplasm of prostate (principal)
CPT/HCPCS: 36415; 84153

== ENCOUNTER → 2025-05-07 | Outpatient (CLI) | payer MEDICARE, BC, SELFPAY ==
--- NOTE | 2025-05-07 13:42 | MRI_ITS ---
PROCEDURE: SPINE LUMBAR (ROUTINE) 05/07/2025 REASON FOR EXAM: L3 COMPRESSION FRACTURE TECHNIQUE: SPINE LUMBAR (ROUTINE) COMPARISON: 05/2024 FINDINGS: Interval vertebroplasty at L5. Interval vertebroplasty at L2. Prior vertebroplasty at L1. New compression fracture of the superior endplate of L4 with edema. New endplate fracture of the inferior aspect of the L3 with concavity. No retropulsion. Some persistent edema at L1, L2 and L5 as well. Normal conus. No compression of the cauda equina. No retroperitoneal or paravertebral mass. T12-L1 and L1-L2 are unremarkable. No spinal stenosis at L2-3 or L3-4. Mild facet arthrosis. Moderate facet arthrosis at L4-5 with ligamentous prominence but no spinal stenosis. At L5-S1 bilateral pars defects may be present with grade 1 subluxation and mild foraminal narrowing. MRI/Spine Lumbar (Routine) IMPRESSION: Interval performance compared to 05/2024 of multiple new vertebroplasties. New areas of vertebral edema and endplate fractures at L3 and L4. See above comments. No retropulsion. Reading Location[facility]
== END | disposition home or self-care (01) ==
LOC: MRI 13:36
PROVIDERS: PCP Family Medicine; Referring Provider Orthopaedic Surgery Orthopaedic Surgery of the Spine; Visit Provider Orthopaedic Surgery Orthopaedic Surgery of the Spine
DX: S32.03 Fracture of third lumbar vertebra (principal)
CPT/HCPCS: 72148

== ENCOUNTER → 2025-08-10 | Outpatient (CLI) | payer MEDICARE, BC, SELFPAY ==
[2025-08-10 11:45] LABS: PSA,Total- Diagnostic 0.06 ng/mL (0.00-4.00)
== END | disposition home or self-care (01) ==
LOC: LAB 09:54
PROVIDERS: PCP Family Medicine; Referring Provider Nurse Practitioner; Visit Provider Nurse Practitioner
DX: C61 Malignant neoplasm of prostate (principal)
CPT/HCPCS: 36415; 84153